=== PATIENT | female | born 1955 | race Caucasian/White ===

== ENCOUNTER → 2017-03-17 | Outpatient (CLI) | payer MEDICAID, MEDICARE ==
[~2017-03-17] MED LIST: FLUO20CA25; ZIPR60CA6
--- NOTE | 2017-03-17 19:45 | Diagnostic Imaging Report ---
Bilateral screening mammogram. The current study was also evaluated with a Computer Aided Detection (CAD) system. INDICATION: Screening. No current complaints stated on the questionnaire. COMPARISON: 02/04/16 FINDINGS: The breasts are composed of heterogeneously dense parenchyma which may decrease mammographic sensitivity. There are scattered benign-appearing calcifications. Biopsy clips in the upper outer aspect of the right breast are noted. Skin thickening from prior radiation also in the axillary tail area of the right breast is seen. Allowing for technique and positional differences, no suspicious change is seen. IMPRESSION: No significant change. ACR BI-RADS Category 2: Benign findings. Result letter will be mailed to the patient. Note: At least 10% of breast cancer is not imaged by mammography. Dictated by: Dictated on workstation # [id number]
== END ==
LOC: RAD 08:59
PROVIDERS: ATTEND Nurse Practitioner Community Health
DX: Z12.31 Encounter for screening mammogram for malignant neoplasm of breast (principal)
CPT/HCPCS: 77067

== ENCOUNTER → 2017-05-23 | Outpatient (CLI) | payer MEDICARE ==
--- NOTE | 2017-05-23 15:59 | Diagnostic Imaging Report ---
EXAM: Bilateral renal ultrasound. INDICATION: Chronic kidney disease. FINDINGS: The previous renal ultrasound exam performed on 01/16/14 failed to show any sign of a solid renal mass or of hydronephrosis of either kidney. There was a 1 cm cyst along the superior aspect of the left kidney. On this study, both kidneys were again identified. The right kidney measures 9 x 4.9 x 4.9 cm, the left kidney is estimated to be 10.6 x 4.7 x 5.5 cm. These measurements are similar to the prior exam. There is still no sign of a solid renal mass or of hydronephrosis of either kidney. The cysts along the superior pole of the left kidney, seen previously, has increased in size since the prior exam and now measures 2.5 x 3.0 x 2.4 cm. This cyst still has a generally benign appearance. The renal cortices are normal in thickness and echogenicity. The bladder was imaged during the course of this exam. There is no obvious bladder abnormality evident. Both ureteral jets were noted. IMPRESSION: 1. There is still no evidence for a solid renal mass or for an acute abnormality of the kidney. 2. The cyst along the superior pole of the left kidney seen previously has increased in size and now measures 2.5 x 3.0 cm. This cyst still has a generally benign appearance. 3. The urinary bladder is grossly unremarkable. Dictated by: Dictated on workstation # [id number]
== END ==
LOC: RAD 14:27
PROVIDERS: ATTEND Nurse Practitioner
DX: N28.1 Cyst of kidney, acquired (principal); N18.3 Chronic kidney disease, stage 3 (moderate)
CPT/HCPCS: 76770

== ENCOUNTER → 2018-07-12 | Outpatient (CLI) | payer BC, MEDICARE ==
--- NOTE | 2018-07-12 16:09 | Diagnostic Imaging Report ---
PROCEDURE: US Renal Bilateral. TECHNIQUE: Multiple real-time grayscale images were obtained over the kidneys in various projections bilaterally. INDICATION: Chronic kidney disease. COMPARISON: 05/23/2017. FINDINGS: The right kidney is 8.5 cm and the left 9.2 cm. A non-vascularized predominantly anechoic cystic mass of the left kidney is measuring 3.0 x 2.8 cm. It does contain some internal non-vascularized debris, probably reflective of its interval intracystic hemorrhage or other complexity. This is unchanged in maximal dimension from the exam of 05/23/2017. The urinary bladder appears normal. No vascularized renal mass. IMPRESSION: A left renal cyst is unchanged in size but does show some new non-vascularized intracystic nodularity and debris raising the question of interval complication from previous infection or hemorrhage. No soft tissue component or vascularized element. No hydronephrosis. Bladder normal. Dictated by: Dictated on workstation # [id number]
== END ==
LOC: RAD 14:45
PROVIDERS: ATTEND Nurse Practitioner
DX: I12.9 Hypertensive chronic kidney disease with stage 1 through stage 4 chronic kidney disease, or unspecified chronic kidney disease (principal); N18.3 Chronic kidney disease, stage 3 (moderate); N28.1 Cyst of kidney, acquired; E87.2 Acidosis; D50.9 Iron deficiency anemia, unspecified; R80.9 Proteinuria, unspecified
CPT/HCPCS: 76770

== ENCOUNTER → 2021-02-10 | Outpatient (CLI) | payer BC, MEDICAID ==
--- NOTE | 2021-02-10 14:43 | Diagnostic Imaging Report ---
PROCEDURE: US Renal Bilateral. INDICATION: Chronic kidney disease. TECHNIQUE: Multiple Real-time grayscale sonographic images were obtained of the kidneys. CORRELATION: 07/12/2018. FINDINGS: RIGHT KIDNEY: 9.8 x 5.0 x 5.2 cm. Hypoechoic mass, compatible with a cyst, at the interpolar lateral region of the right kidney measuring 1.1 x 1.1 x 0.8 cm. The renal parenchyma is otherwise with some thinning and increased echogenicity. No hydronephrosis. LEFT KIDNEY: 10.6 x 6.1 x 5.0 cm. At the interpolar region, there is a solid, vascularized mass measuring 3.6 x 3.0 x 3.7 cm. Some thinning of the renal parenchyma. No hydronephrosis. URINARY BLADDER: The partially distended bladder has an unremarkable appearance. Bilateral ureteral jets are present. IMPRESSION: 1. There is a nearly 4 cm solid, vascularized left renal mass which is worrisome for renal malignancy until proven otherwise. Correlation with CT and/or MRI (preferably with contrast enhancement if clinically able) would be recommended for followup. 2. Some generalized thinning and increased echogenicity of the renal parenchyma, compatible with chronic renal disease. Dictated by: Dictated on workstation # [id number]
== END ==
LOC: RAD 13:00
PROVIDERS: ATTEND Nurse Practitioner
DX: N18.31 Chronic kidney disease, stage 3a (principal); N28.89 Other specified disorders of kidney and ureter
CPT/HCPCS: 76770

== ENCOUNTER → 2021-03-10 | Outpatient (CLI) | payer MEDICAID ==
--- NOTE | 2021-03-10 18:29 | Diagnostic Imaging Report ---
PROCEDURE: CT abdomen and pelvis without contrast. TECHNIQUE: Multiple contiguous axial images were obtained through the abdomen and pelvis without the use of intravenous contrast. Auto Exposure Controls were utilized during the CT exam to meet ALARA standards for radiation dose reduction. INDICATION: Microhematuria and renal masses. Comparison is made with renal ultrasound from 02/10/2021. The lung bases are clear. The liver and gallbladder are unremarkable. No biliary ductal dilatation is seen. Pancreas and spleen are unremarkable. No adrenal mass is detected. A small cyst noted in the right kidney by ultrasound is not well visualized with CT. No calculi are detected. The questionable solid mass involving the left kidney by ultrasound is not appreciated with CT however the overall study is somewhat compromised due to absence of intravenous contrast. There is no hydronephrosis. Aorta is nonaneurysmal. No central retroperitoneal or mesenteric lymphadenopathy is seen. Bowel loops are normal caliber. There is diverticulosis of the sigmoid and descending colon but no evidence of acute diverticulitis. There is no free fluid or fluid collection. Bladder and uterus are unremarkable. No definite osteolytic or blastic lesions are seen. IMPRESSION: Renal masses noted on recent ultrasound are not well visualized with CT due to absence of intravenous contrast. If the patient is not able to receive iodinated contrast, MRI of the abdomen would be recommended for further evaluation, as this could provide better tissue contrast and help exclude a renal mass. Dictated by: Dictated on workstation # [id number]
== END ==
LOC: RAD 14:45
PROVIDERS: ATTEND Urology
DX: N28.1 Cyst of kidney, acquired (principal); N28.89 Other specified disorders of kidney and ureter
CPT/HCPCS: 74176

== ENCOUNTER → 2021-03-24 | Outpatient (CLI) | payer MEDICAID | LOC: RAD 13:52 | PROVIDERS: ATTEND Urology | DX: N28.89 Other specified disorders of kidney and ureter (principal); Z53.9 Procedure and treatment not carried out, unspecified reason ==

== ENCOUNTER → 2021-07-08 | Outpatient (CLI) | payer MEDICAID ==
--- NOTE | 2021-07-08 13:08 | Diagnostic Imaging Report ---
PROCEDURE: CT abdomen without contrast. TECHNIQUE: Multiple contiguous axial images were obtained through the abdomen without the use of intravenous contrast. Auto Exposure Controls were utilized during the CT exam to meet ALARA standards for radiation dose reduction. INDICATION: Renal mass. COMPARISON: 02/07/2021. FINDINGS: Bilateral kidneys appear stable. No mass or cyst is identified. There is no hydronephrosis. No retroperitoneal lymphadenopathy is identified. The additional solid organs, lung bases and visualized bowel normal. Osseous structures are age-appropriate. IMPRESSION: No obvious renal mass identified. Please note the examination is limited without IV contrast. Dictated by: Dictated on workstation # [id number]
== END ==
LOC: RAD 12:45
PROVIDERS: ATTEND Urology
DX: N28.89 Other specified disorders of kidney and ureter (principal)
CPT/HCPCS: 74150

== ENCOUNTER → 2021-12-01 | Outpatient (CLI) | payer MEDICAID ==
[~2021-12-01] MED LIST changes: +CATHETER FLUSH 10 ML SYR IV PRN; +HOLD METFORMIN - RECEIVED CONTRAST 20 ML VIAL IV SCH; +IOHEXOL 350 MG/ML 100 ML (OMNIPAQUE 350) VIAL IV ONE; +NS 100 ML (IVPB) BAG IV ONE
[2021-12-01 11:18] LABS: CREATININE SERUM 1.56 MG/DL (0.60-1.30)
--- NOTE | 2021-12-01 16:06 | Diagnostic Imaging Report ---
INDICATION: Renal lesions. TECHNIQUE: Multiple contiguous axial CT images of the abdomen were obtained prior to and after intravenous administration of iodinated contrast. Auto Exposure Controls were utilized during the CT exam to meet ALARA standards for radiation dose reduction. COMPARISON: Prior CT of 07/08/2021 and prior ultrasound of 02/10/2021. FINDINGS: The previous ultrasound questioned masses in the kidneys. The CT of 07/08/2021 did not show definitive masses without contrast. Today's study was performed pre and post IV contrast. The visualized portions of the lung bases show some motion artifact. There is no consolidation, pleural fluid, or free intraperitoneal air. The liver shows no focal lesion. Gallbladder appears unremarkable. The spleen, adrenals, and pancreas are normal. The kidneys bilaterally show cortical scarring and thinning. There is no radiopaque stone or hydronephrosis. There is a small cyst in the midpole of the right kidney. No definite solid mass is seen in either kidney. There is no retroperitoneal mass or adenopathy. There is no ascites or abnormal fluid collection. There are uncomplicated colonic diverticula. IMPRESSION: There is cortical scarring and thinning in both kidneys but no definitive renal mass is seen pre or post IV contrast. There is a small cyst in the midpole of the right kidney. There is no other significant finding. Dictated by: Dictated on workstation # [id number]
== END ==
LOC: RAD 11:45
PROVIDERS: ATTEND Urology
DX: N28.1 Cyst of kidney, acquired (principal)
CPT/HCPCS: 36415; 74170; 82565; 84520

== ENCOUNTER → 2022-11-24 | Outpatient (CLI) | payer MEDICARE, MEDICAID ==
[~2022-11-24] MED LIST changes: -CATHETER FLUSH 10 ML SYR IV PRN; -HOLD METFORMIN - RECEIVED CONTRAST 20 ML VIAL IV SCH; -IOHEXOL 350 MG/ML 100 ML (OMNIPAQUE 350) VIAL IV ONE; -NS 100 ML (IVPB) BAG IV ONE
== END | disposition home or self-care (01) ==
LOC: PREOP 05:33
PROVIDERS: ATTEND Surgery
DX: Z01.818 Encounter for other preprocedural examination (principal)

== ENCOUNTER → 2023-06-28 | Outpatient (CLI) | payer MEDICARE, MEDICAID ==
--- NOTE | 2023-06-28 16:15 | Diagnostic Imaging Report ---
INDICATION: Postmenopausal screening. COMPARISON: None. FINDINGS: AP Spine L1-L4: [BMD (g/cm2): 1.270] [T-Score: 0.6] [Z-Score: 2.2] [BMD Previous: NA] [BMD % Change: NA] LT Hip Neck: [BMD (g/cm2): 0.765] [T-Score: -2.0] [Z-Score: -0.4] LT Hip Total: [BMD (g/cm2):0.745] [T-Score:-2.1] [Z-Score: -0.8] [BMD Previous: NA] [BMD % Change: NA] RT Hip Neck: [BMD (g/cm2):0.748] [T-Score:-2.1] [Z-Score:-0.5] RT Hip Total: [BMD (g/cm2):0.794] [T-score:-1.7] [Z-Score:-0.4] [BMD Previous:NA] [BMD % Change:NA] *Indicates significant change from prior examination based on 95% confidence level. World Health Organization criteria for BMD interpretation classify patients as Normal (T-score at or above -1.0), Osteopenic (T-score between -1.0 and -2.5) or Osteoporotic (T-score at or below -2.5). LIMITATIONS AND MODIFICATION: None. FRACTURE RISK (FRAX SCORE): The ten year probability of (%): Major Osteoporotic Fracture: [12.2] Hip Fracture: [2.3] IMPRESSION: 1. Osteopenia (Low bone mass). 2. Baseline examination. 3. See below National Osteoporosis Foundation guidelines on when to potentially initiate pharmacologic therapy. Based on the National Osteoporosis Foundation Guidelines, pharmacologic treatment should be initiated in any of the following, unless clinical conditions suggest otherwise: * Any patient with prior fragility fracture of the hip or vertebrae. A spine fracture indicates 5X risk for subsequent spine fracture and 2X risk for subsequent hip fracture. * Osteoporosis (T-score <-2.5). * Postmenopausal women and men age 50 and older with low bone mass/osteopenia (T-score between -1.0 and -2.5) by DXA and 10-year major osteoporotic fracture greater than 20% or a 10-year probability of hip fracture greater than 3%. These fracture risks are supplied above in the FRAX score, if applicable. * Clinician judgement and/or patient preferences may indicate treatment for people with 10-year fracture probabilities above or below these levels. Dictated by: Dictated on workstation # [id number]
== END ==
LOC: RAD 11:52
PROVIDERS: ATTEND Nurse Practitioner Family
DX: Z13.820 Encounter for screening for osteoporosis (principal); M85.80 Other specified disorders of bone density and structure, unspecified site; Z78.0 Asymptomatic menopausal state
CPT/HCPCS: 77080

== ENCOUNTER 2023-07-14 19:34 | Emergency (ER) | payer MEDICARE, MEDICAID ==
[~2023-07-14] VITALS: Ht 160 cm; Wt 63.5 kg
[2023-07-14 20:14] LABS: BASOPHILS # (AUTO) 0.1 10^3/uL (0.0-0.1); BASOPHILS % (AUTO) 1 % (0-10); EOSINOPHILS # (AUTO) 0.4 10^3/uL (0.0-0.3); EOSINOPHILS % (AUTO) 5 % (0-10); HEMATOCRIT 33 % (35-52); HEMOGLOBIN 10.5 g/dL (11.5-16.0); LYMPHOCYTES # (AUTO) 1.5 10^3/uL (1.0-4.0); LYMPHOCYTES % (AUTO) 19 % (12-44); MEAN CORPUSCULAR HEMOGLOBIN 31 pg (25-34); MEAN CORPUSCULAR HGB CONC 32 g/dL (32-36); MEAN CORPUSCULAR VOLUME 99 fL (80-99); MEAN PLATELET VOLUME 10.5 fL (9.0-12.2); MONOCYTES # (AUTO) 0.9 10^3/uL (0.0-1.0); MONOCYTES % (AUTO) 11 % (0-12); NEUTROPHILS # (AUTO) 4.9 10^3/uL (1.8-7.8); NEUTROPHILS % (AUTO) 63 % (42-75); PLATELET COUNT 252 10^3/uL (130-400); WHITE BLOOD COUNT 7.8 10^3/uL (4.3-11.0)
[2023-07-14 20:18] LABS: PROTHROMBIN TIME PATIENT 13.7 SEC (12.2-14.7)
[2023-07-14 20:21] LABS: FIBRIN DEGRADATION PRODUCTS 0.34 UG/ML (0.00-0.49)
--- NOTE | 2023-07-14 20:23 | Diagnostic Imaging Report ---
CHEST 1 VIEW, AP/PA ONLY Indication: Chest pain. Comparison: None available. Findings: No focal airspace disease in the visualized lungs. No pleural effusion or pneumothorax. Normal cardiomediastinal silhouette. Impression: 1. No acute cardiopulmonary process by portable radiography. Dictated by: Dictated on workstation # [id number]
[2023-07-14 20:29] LABS: ALANINE AMINOTRANSFERASE 12 U/L (0-55); ALBUMIN 4.3 GM/DL (3.2-4.5); ALKALINE PHOSPHATASE 72 U/L (40-136); AMYLASE 103 U/L (25-125); BILIRUBIN,TOTAL 0.4 MG/DL (0.1-1.0); BUN/CREATININE RATIO 22; CALCIUM 9.2 MG/DL (8.5-10.1); CARBON DIOXIDE 16 MMOL/L (21-32); CHLORIDE 108 MMOL/L (98-107); CREATINE KINASE 99 U/L (29-168); CREATININE SERUM 1.93 MG/DL (0.60-1.30); GFR ESTIMATED 28; GLUCOSE 133 MG/DL (70-105); LIPASE 48 U/L (8-78); MAGNESIUM 2.2 MG/DL (1.6-2.4); POTASSIUM 4.2 MMOL/L (3.6-5.0); SODIUM 136 MMOL/L (135-145); TOTAL PROTEIN 6.9 GM/DL (6.4-8.2)
--- NOTE | 2023-07-14 20:31 | ED Chest Pain ---
General Chief Complaint: Chest Pain Stated Complaint: CHEST PAIN Nursing Triage Note: PT TO RM 9 BY EMS WITH CC OF CHEST PAIN SINCE APPROX 1400. PT DENIES CARDIAC HISTORY AND SOA. EMS STATES PT REFUSED ASA AND A IV ENROUTE. PT STATES PAIN RADIATES TO BACK AND INCREASED WITH DEEP BREATHING. 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 Exam Limitations: language barrier History of Present Illness Date Seen by Provider: Jul 14, 2023 Time Seen by Provider: 19:30 Initial Comments PT ARRIVES VIA EMS FROM HOME PT REFUSED ALL TREATMENT BY EMS--REFUSED IV, REFUSED ASPIRIN C/O CHEST PAIN THAT BEGAN AROUND 1400 TODAY PAIN RADIATES THROUGH TO BACK STATES PAIN IN CHEST IS 4/10, PAIN IN BACK IS 6/10 PAIN IS WORSE WITH BREATHING, AND BETTER IF SITTING NO SHORTNESS OF BREATH NO SWEATS NO DIZZINESS OR SYNCOPE NO NAUSEA/VOMITING NO PALPITATIONS HAS NOT TAKEN ANYTHING FOR PAIN NO HISTORY OF SIMILAR PT STATES HER "HEART IS BROKEN" BECAUSE HER DOG RECENTLY . STATES "IT'S PSYCHOLOGICAL--IT'S NOT MY HEART" Allergies and Home Medications Allergies Coded Allergies: No Known Drug Allergies (Unverified , 12/01/21) Patient Home Medication List Fluoxetine Hcl (Fluoxetine Hcl) 20 Mg Capsule, (Reported) Entered as Reported by: MARÍA SHAIKH on 06/21/09 1004 Ziprasidone (Geodon) 60 Mg Capsule, (Reported) Entered as Reported by: MARÍA SHAIKH on 06/21/09 1004 Past Joucoal-Cgamav-Cutctm Hx Patient Social History Tobacco Use?: No Substance use?: No Alcohol Use?: No Past Medical History Surgery/Hospitalization HX: DENIES Physical Exam Vital Signs Vital Signs - First Documented 07/14/23 19:34 Temp 36.6 Pulse 90 Resp 16 B/P (MAP) 112/80 (91) Pulse Ox 97 O2 Delivery Room Air Capillary Refill : Less Than 3 Seconds Height, Weight, BMI Height: '" Weight: lbs. oz. kg; 24.00 BMI Method: Progress/Results/Core Measures Results/Orders Lab Results Laboratory Tests Test 07/14/23 19:59 Range/Units White Blood Count 7.8 4.3-11.0 10^3/uL Red Blood Count 3.36 L 3.80-5.11 10^6/uL Hemoglobin 10.5 L 11.5-16.0 g/dL Hematocrit 33 L 35-52 % Mean Corpuscular Volume 99 80-99 fL Mean Corpuscular Hemoglobin 31 25-34 pg Mean Corpuscular Hemoglobin Concent 32 32-36 g/dL Red Cell Distribution Width 12.0 10.0-14.5 % Platelet Count 252 130-400 10^3/uL Mean Platelet Volume 10.5 9.0-12.2 fL Immature Granulocyte % (Auto) 0 % Neutrophils (%) (Auto) 63 42-75 % Lymphocytes (%) (Auto) 19 12-44 % Monocytes (%) (Auto) 11 0-12 % Eosinophils (%) (Auto) 5 0-10 % Basophils (%) (Auto) 1 0-10 % Neutrophils # (Auto) 4.9 1.8-7.8 10^3/uL Lymphocytes # (Auto) 1.5 1.0-4.0 10^3/uL Monocytes # (Auto) 0.9 0.0-1.0 10^3/uL Eosinophils # (Auto) 0.4 H 0.0-0.3 10^3/uL Basophils # (Auto) 0.1 0.0-0.1 10^3/uL Immature Granulocyte # (Auto) 0.0 0.0-0.1 10^3/uL Prothrombin Time 13.7 12.2-14.7 SEC INR Comment 1.0 0.8-1.4 Activated Partial Thromboplast Time 31 24-35 SEC D-Dimer 0.34 0.00-0.49 UG/ML Sodium Level 136 135-145 MMOL/L Potassium Level 4.2 3.6-5.0 MMOL/L Chloride Level 108 H 98-107 MMOL/L Carbon Dioxide Level 16 L 21-32 MMOL/L Anion Gap 12 5-14 MMOL/L Blood Urea Nitrogen 43 H 7-18 MG/DL Creatinine 1.93 H 0.60-1.30 MG/DL Estimat Glomerular Filtration Rate 28 BUN/Creatinine Ratio 22 Glucose Level 133 H 70-105 MG/DL Calcium Level 9.2 8.5-10.1 MG/DL Corrected Calcium 9.0 8.5-10.1 MG/DL Magnesium Level 2.2 1.6-2.4 MG/DL Total Bilirubin 0.4 0.1-1.0 MG/DL Aspartate Amino Transf (AST/SGOT) 12 5-34 U/L Alanine Aminotransferase (ALT/SGPT) 12 0-55 U/L Alkaline Phosphatase 72 40-136 U/L Total Creatine Kinase 99 29-168 U/L Creatine Kinase MB 1.7 <6.6 NG/ML Myoglobin 66.8 10.0-92.0 NG/ML Troponin I < 0.028 <0.028 NG/ML B-Type Natriuretic Peptide 13.6 <100.0 PG/ML Total Protein 6.9 6.4-8.2 GM/DL Albumin 4.3 3.2-4.5 GM/DL Amylase Level 103 25-125 U/L Lipase 48 8-78 U/L Influenza Type A (RT-PCR) Not Detected Not Detecte Influenza Type B (RT-PCR) Not Detected Not Detecte SARS-CoV-2 RNA (RT-PCR) Not Detected Not Detecte My Orders Orders - ROSANNA CONKLIN DO Cbc And Automated Diff (07/14/23 19:36) Magnesium (07/14/23 19:36) Comprehensive Metabolic Panel (07/14/23 19:36) Myoglobin Serum (07/14/23 19:36) Protime With Inr (07/14/23 19:36) Partial Thromboplastin Time (07/14/23 19:36) Creatine Kinase (07/14/23 19:36) Creatine Kinase Mb (07/14/23 19:36) Lipase (07/14/23 19:36) Amylase (07/14/23 19:36) Bnp [place] (07/14/23 19:36) Fibrin Degradation Products (07/14/23 19:36) Troponin I Stephanie (07/14/23 19:36) Covid 19 Inhouse Test (07/14/23 19:36) Influenza A And B By Pcr (07/14/23 19:36) Chest 1 View, Ap/Pa Only (07/14/23 19:36) Ekg Tracing (07/14/23 19:36) O2 (07/14/23 19:36) Monitor-Rhythm Ecg Trace Only (07/14/23 19:36) Ed Iv/Invasive Line Start (07/14/23 19:36) Pantoprazole Tablet (Pantoprazole Tablet (07/14/23 21:15) Vital Signs/I&O 07/14/23 19:34 Temp 36.6 Pulse 90 Resp 16 B/P (MAP) 112/80 (91) Pulse Ox 97 O2 Delivery Room Air Blood Pressure Mean: 91 Diagnostic Imaging Comments CXR--PER RADIOLOGIST REPORT AT 2038 Findings: No focal airspace disease in the visualized lungs. No pleural effusion or pneumothorax. Normal cardiomediastinal silhouette. Impression: 1. No acute cardiopulmonary process by portable radiography. Reviewed: Reviewed by Me Departure Impression Primary Impression: Chest pain Disposition: HOME, SELF-CARE Condition: Stable Departure-Patient Inst. Decision time for Depature: 21:08 Referrals: CIRA DUFFY (PCP) Primary Care Physician [facility] [place] Patient Instructions: Chest Pain, Adult ED Add. Discharge Instructions: HOME, REST CONTINUE YOUR REGULAR MEDICATIONS PRESCRIBED FOLLOW UP WITH YOUR DR IN 1-2 DAYS FOR FURTHER CARE, RETURN TO ER IF SYMPTOMS WORSEN All discharge instructions reviewed with patient and/or family. Voiced understanding. Scripts Pantoprazole Sodium (Protonix) 40 Mg Tablet.dr 40 MG PO DAILY, #15 TAB Prov: ROSANNA CONKLIN DO 07/14/23 ROSANNA CONKLIN DO Jul 14, 2023 20:31
[2023-07-14 20:36] LABS: CREATINE KINASE MB 1.7 NG/ML (<6.6)
[2023-07-14] MEDS ORDERED: PANT40TA2 PO (21:09)
[2023-07-14] MEDS ORDERED: PANTOPRAZOLE 40 MG TABLET PO ONE (21:15)
[2023-07-14 21:21] VITALS: BP 106/59
== END 2023-07-14 21:21 | disposition home or self-care (01) ==
LOC: EDUNIT# 19:35 → ER 19:36
DX: R07.9 Chest pain, unspecified (principal); Z20.822 Contact with and (suspected) exposure to COVID-19
CPT/HCPCS: 36415; 71045; 80053; 82150; 82550; 82553; 83690; 83735; 83874; 83880; 84484; 85025; 85379; 85610; 85730; 87636; 93005; 93041